=== PATIENT | female | born 1990 | race Caucasian/White ===

== ENCOUNTER 2017-06-06 14:52 | Outpatient (CLI) | payer OTHER ==
[~2017-06-06] VITALS: Ht 160 cm; Wt 89.0 kg
--- NOTE | 2017-06-06 15:04 | RADRPT ---
PROCEDURE: US OB biophysical profile. CLINICAL INDICATION: decreased movements, gestational diabetes TECHNIQUE: Multiple sonographic images of the pelvis were obtained. The images were reviewed on a PACS workstation. COMPARISON: No prior studies are available for comparison. FINDINGS: There is a single viable intrauterine gestation. Cardiac activity is present with 144 beats per min keyanna. There is a vertex presentation. The placenta is anterior. There is no evidence of placental abruption. There is a normal amount of amniotic fluid with an LUCAS = 16.3 cm. Biophysical profile: movement 2/2 tone 2/2. breathing 2/2 LUCAS 2/2 Total 05/22 RPTAT: AA . IMPRESSION: Normal biophysical profile. . .Luis De Leon MD, Date Time Electronically viewed and signed by .Luis De Leon MD, MD on 06/06/2017 15:04 .S/
--- NOTE | 2017-06-06 15:05 | RADRPT ---
PROCEDURE: US OB. CLINICAL INDICATION: Size and dates , GDR TECHNIQUE: Multiple sonographic images of the pelvis and gravid uterus were obtained. The images were reviewed on a PACS workstation. COMPARISON: No prior studies are available for comparison. FINDINGS: There is a single viable intrauterine gestation. Cardiac activity is present with 137 beats per min keyanna. There is a vertex presentation. The placenta is anterior. There is no evidence of placental abruption. There is a normal amount of amniotic fluid with an LUCAS = 16.3 cm. Measurements were made in order to determine age. The results are as follows: BPD =9.1 cm HC =31.4 cm AC =33.9 cm FL =7.7 cm Estimated gestational age of approximately 37 weeks and 2 days based on ultrasound measurements. Clinical age: 40 weeks and 3 days. The estimated date of delivery is 06/25/17, based on ultrasound measurements. The EFW = 3273 g, 18.5%, based on LMP age. RPTAT: AA IMPRESSION: Single viable intrauterine gestation of approximately 37 weeks and 2 days based on ultrasound measu rements. Small than clinical age by 3 weeks. .Luis De Leon MD, Date Time Electronically viewed and signed by .Luis De Leon MD, on 06/06/2017 15:05 .S/
[2017-06-06 16:07] VITALS: Ht 160 cm; Wt 89.0 kg
[2017-06-06 16:09] VITALS: BP 121/77; PULSE 87; RESP 18
[2017-06-06] MEDS ORDERED: LACTATED RINGER'S 1,000 ML IV SCH (16:11)
[2017-06-06] MEDS ORDERED: MISOPROSTOL 200 MCG TAB PR PRN (16:30)
[2017-06-06] MEDS ORDERED: OXYTOCIN 30 UNITS/LR 500 ML IV PRN (16:30)
[2017-06-06] MEDS ORDERED: BUTORPHANOL 2 MG INJ IV PRN (16:30)
[2017-06-06] MEDS ORDERED: METHYLERGONOVINE 0.2 MG INJ IM PRN (16:30)
[2017-06-06] MEDS ORDERED: IBUPROFEN 600 MG TAB PO PRN (16:30)
[2017-06-06] MEDS ORDERED: CARBOPROST 250 MCG INJ IM PRN (16:30)
[2017-06-06] MEDS ORDERED: AMPICILLIN 2 GM/NS (PMX) 100 ML IV ONE (16:30)
[2017-06-06] MEDS ORDERED: LIDOCAINE 1% (MPF) 30 ML INJ INJ PRN (16:30)
[2017-06-06] MEDS ORDERED: OXYTOCIN 30 UNITS/LR 500 ML IV SCH ×2 (16:30)
[2017-06-06] MEDS ORDERED: LACTATED RINGER'S 1,000 ML IV PRN (18:00)
[2017-06-06] MEDS ORDERED: AMPICILLIN 1 GM/NS (PMX) 50 ML IV SCH (20:30)
--- NOTE | 2017-08-29 12:32 | PN ---
Triage Information Date/Time Reason for visit: Uterine contractions Weeks of Gestation 40 weeks and 1 day /Para Diabetes: none Hypertention: none Additional information 27 years old with IUP at 40 weeks and 1 day with no complication in her course presented for r/o labor. Denies any vaginal bleeding. Decreased movement or uterine contractions. Deneis any complications in her course. Objective Heart Rate: 130's Contractions: None Exam GA: A&O, NAD Abdomen: Soft, Gravid, Fundal height consistent with GA NST: CAt 1 SVE: 1 / long and high No cervical change noted in exam and during observation Results/Medications Imaging Results PROCEDURE: US OB. CLINICAL INDICATION: Size and dates , GDR TECHNIQUE: Multiple sonographic images of the pelvis and gravid uterus were obtained. The images were reviewed on a PACS workstation. COMPARISON: No prior studies are available for comparison. FINDINGS: There is a single viable intrauterine gestation. Cardiac activity is present with 137 beats per minute. There is a vertex presentation. The placenta is anterior. There is no evidence of placental abruption. There is a normal amount of amniotic fluid with an LUCAS = 16.3 cm. Measurements were made in order to determine age. The results are as follows: BPD = 9.1 cm HC = 31.4 cm AC = 33.9 cm FL = 7.7 cm Estimated gestational age of approximately 37 weeks and 2 days based on ultrasound measurements. Clinical age: 40 weeks and 3 days. The estimated date of delivery is 06/25/17, based on ultrasound measurements. The EFW = 3273 g, 18.5%, based on LMP age. RPTAT: AA IMPRESSION: Single viable intrauterine gestation of approximately 37 weeks and 2 days based on ultrasound measurements. Small than clinical age by 3 weeks. PROCEDURE: US OB biophysical profile. CLINICAL INDICATION: decreased movements, gestational diabetes TECHNIQUE: Multiple sonographic images of the pelvis were obtained. The images were reviewed on a PACS workstation. COMPARISON: No prior studies are available for comparison. FINDINGS: There is a single viable intrauterine gestation. Cardiac activity is present with 144 beats per minute. There is a vertex presentation. The placenta is anterior. There is no evidence of placental abruption. There is a normal amount of amniotic fluid with an LUCAS = 16.3 cm. Biophysical profile: movement 2/2 tone 2/2. breathing 2/2 LUCAS 11/16 Total 05/22 RPTAT: AA . IMPRESSION: Normal biophysical profile. . Disposition: Discharge Assessment/Plan IUP at 40 weeks and 1 day Post date Not in labor Antepartum testing reassuring DC home Follow up in 3 days for NST Strict labor precaution and kick counts discussed Follow up with OB office in 245- 48 hours discussed Patient verbalized understanding all questions were answered CHARLIE JAMESON MD Aug 29, 2017 12:32
== END 2017-06-06 17:15 | disposition home or self-care (01) ==
LOC: OBT 14:52 → L-D 15:00 → OBT 17:15 → EDSTATUS 17:22
PROVIDERS: ATTEND Obstetrics & Gynecology Obstetrics
DX: O62.9 Abnormality of forces of labor, unspecified (principal); O48.0 Post-term pregnancy; Z3A.40 40 weeks gestation of pregnancy
CPT/HCPCS: 76815; 76818; G0463; J7120

== ENCOUNTER 2017-06-09 10:11 | Inpatient (IN) | payer OTHER ==
--- NOTE | 2017-06-06 23:49 | PN ---
Triage Information Date/Time 06/06/2017 Reason for visit: Patient was sent from [facility] for evaluation for presenation . Per patient was told that has face presentation with mentum anterior and Nuchal cord x 1. Weeks of Gestation 40 weeks and 3 days /Para Diabetes: none Hypertention: none Additional information 27 years old with IUP at 39 weeks and 3 days and care at [place] was sent for evaluation due to Face? presenation. mentum anterior and nuchal cord x 1 in ultrasound and concern for possible macrosomia She denied any vaginal bleeding. Leaking of fluid or uterine contractions or decreased movement. Had an ultrasound here at the facility that was noted to have vertex presentation. NST: Category 1. Exam showed 1 fingertip /long and high. Occasional rare contraction noted on the monitor. Estimated weight 3858 g Patient denies feeling any contractions. Objective Heart Rate: 130's Contractions: >10 Minutes Apart Results/Medications Imaging Results PROCEDURE: US OB. CLINICAL INDICATION: Size and dates , GDR TECHNIQUE: Multiple sonographic images of the pelvis and gravid uterus were obtained. The images were reviewed on a PACS workstation. COMPARISON: No prior studies are available for comparison. FINDINGS: There is a single viable intrauterine gestation. Cardiac activity is present with 137 beats per minute. There is a vertex presentation. The placenta is anterior. There is no evidence of placental abruption. There is a normal amount of amniotic fluid with an LUCAS = 16.3 cm. Measurements were made in order to determine age. The results are as follows: BPD = 9.1 cm HC = 31.4 cm AC = 33.9 cm FL = 7.7 cm Estimated gestational age of approximately 37 weeks and 2 days based on ultrasound measurements. Clinical age: 40 weeks and 3 days. The estimated date of delivery is 06/25/17, based on ultrasound measurements. The EFW = 3273 g, 18.5%, based on LMP age. RPTAT: AA IMPRESSION: Single viable intrauterine gestation of approximately 37 weeks and 2 days based on ultrasound measurements. Small than clinical age by 3 weeks. Disposition: Discharge Assessment/Plan IUP at 40 weeks and 2days Not in labor heart rate category 1 Presentation vertex No evidence of macrosomia options of Induction versus expectant management and induction at 40 weeks and 6 days, discussed with the patient with pros and cons and risks and benefit. Increased risk of section with induction discussed. Patient desires to proceed with expectant management. Strict labor precaution and kick count discussed. Follow-up with triage in 3 days for NST with a plan to book for induction at 40 weeks and 6 days discussed with the patient Patient verbalized understanding and agreed to comply with instructions Strict kick count discussed with the patient CHARLIE JAMESON MD Jun 06, 2017 23:49
--- NOTE | 2017-06-09 12:12 | RADRPT ---
PROCEDURE: US OB. CLINICAL INDICATION: Post dates at 40 weeks 4 days. TECHNIQUE: Multiple sonographic images of the uterus were obtained. The images were revi ewed on a PACS workstation. COMPARISON: No prior studies are available for comparison. FINDINGS: There is a single live intrauterine gestation. heart rate is 144 beats per minute. Measurements were made in order to determine age. The results are as follows: BPD = 9.42 cm. HC = 34.31 cm. AC = 36.69 cm. FL = 7.51 cm. Estimated weight is 3881 +/- 582 grams. LMP growth percentile is 64 %. Menstrual age by ultrasound dates is 39 weeks 2 days. The estimated date of delivery is 06/14/2017. Position is cephalic and placenta is anterior grade III. There is no evidence for an abruption or pl acenta previa. IMPRESSION: 1. Single live intrauterine gestation of 39 weeks 0 days menstrual age by ultrasound dates. 2. The estimated date of delivery is 06/16/2017. RPTAT: QQ .Andreas Roland MD, Date Time Electronically viewed and signed by .Andreas Roland MD, on 06/09/2017 12:11 .R/
--- NOTE | 2017-06-09 13:40 | HP ---
Date/Time of Note Date/Time of Note DATE: 06/09/17 TIME: 13:36 OB - History Hx of Present Chief Complaint: NST and biophysical profile for postdates at 40 weeks 4 days of gestation Estimated Due Date: Jun 05, 2017 : 1 Para: 0 Care: Good Care Abnormal Ultrasound Findings: PROCEDURE: US OB. CLINICAL INDICATION: Post dates at 40 weeks 4 days. TECHNIQUE: Multiple sonographic images of the uterus were obtained. The images were reviewed on a PACS workstation. COMPARISON: No prior studies are available for comparison. FINDINGS: There is a single live intrauterine gestation. heart rate is 144 beats per minute. Measurements were made in order to determine age. The results are as follows: BPD = 9.42 cm. HC = 34.31 cm. AC = 36.69 cm. FL = 7.51 cm. Estimated weight is 3881 +/- 582 grams. LMP growth percentile is 64 %. Menstrual age by ultrasound dates is 39 weeks 2 days. The estimated date of delivery is 06/14/2017. Position is cephalic and placenta is anterior grade III. There is no evidence for an abruption or placenta previa. IMPRESSION: 1. Single live intrauterine gestation of 39 weeks 0 days menstrual age by ultrasound dates. 2. The estimated date of delivery is 06/16/2017. RPTAT: QQ .Andreas Roland MD, Date Time Electronically viewed and signed by .Andreas Roland MD, MD on 06/09/2017 12:11 .R/ CC: HELGA MARTINEZ MD Obstetrical Complications: None Medical Complications: None Other Concerns: + GBS Past Family/Social History * Past Medical, Surgical, Family and Obstetric Histories reviewed from chart. OB Admission Exam Physical Exam HEENT: WNL Cervical Dilatation: 1cm Effacement: 50% Station: -2 Membranes: Intact Heart Rate: 140's Accelerations: Accelerations Present Decelerations: No Decelerations Varibility: Marked Contractions on Admission: 6-10 Minutes Apart OB Assessment/Plan Other Assessment: Primigravida postdates at 40 weeks and 4 days of gestation Admit for augmentation of labor Labs ABX for GBS prophylaxis Epidural anesthesia as needed Induction Method: per Pitocin Protocol HELGA MARTINEZ MD Jun 09, 2017 13:40
[2017-06-09] MEDS: LACTATED RINGER'S 1,000 ML IV SCH ×2 (13:56→17:23)
[2017-06-09] MEDS ORDERED: OXYCODONE/ASPIRIN (4.88/325) TAB PO PRN (14:00)
[2017-06-09] MEDS ORDERED: BUTORPHANOL 2 MG INJ IV PRN ×2 (14:00)
[2017-06-09] MEDS ORDERED: METHYLERGONOVINE 0.2 MG INJ IM PRN ×2 (14:00→18:30)
[2017-06-09] MEDS ORDERED: LIDOCAINE 1% (MPF) 30 ML INJ INJ PRN (14:00)
[2017-06-09] MEDS ORDERED: OXYTOCIN 30 UNITS/LR 500 ML IV PRN ×2 (14:00→18:30)
[2017-06-09] MEDS ORDERED: AMPICILLIN 2 GM/NS (PMX) 100 ML IV ONE (14:00)
[2017-06-09] MEDS ORDERED: IBUPROFEN 600 MG TAB PO PRN (14:00)
[2017-06-09] MEDS ORDERED: HYDROCODONE/APAP (5/325) TAB PO PRN (14:00)
[2017-06-09] MEDS ORDERED: OXYTOCIN 30 UNITS/LR 500 ML IV SCH ×3 (14:00)
[2017-06-09] MEDS ORDERED: CARBOPROST 250 MCG INJ IM PRN ×2 (14:00→18:30)
[2017-06-09] MEDS ORDERED: MISOPROSTOL 200 MCG TAB PR PRN ×2 (14:00→18:30)
[2017-06-09 15:24] LABS: BASOPHILS % 0.2 % (0.0-2.0); EOSINOPHILS % 0.2 % (0.0-7.0); HEMATOCRIT 41.2 % (37.0-47.0); HEMOGLOBIN 13.3 g/dl (12.0-16.0); LYMPHOCYTES # 1.7 10^3/ul (0.8-2.9); LYMPHOCYTES % 13.1 % (15.0-51.0); MEAN CORPUSCULAR HEMOGLOBIN 26.4 pg (29.0-33.0); MEAN CORPUSCULAR HGB CONC 32.3 g/dl (32.0-37.0); MEAN CORPUSCULAR VOLUME 81.7 fl (82.0-101.0); MEAN PLATELET VOLUME 9.9 fl (7.4-10.4); MONOCYTE # 0.7 10^3/ul (0.3-0.9); MONOCYTES % 5.4 % (0.0-11.0); NEUTROPHILS % 80.1 % (39.0-77.0); PLATELET COUNT 263 10^3/UL (140-415); RED BLOOD COUNT 5.04 10^6/ul (4.20-5.40); RED CELL DISTRIBUTION WIDTH 18.6 % (11.5-14.5); WHITE BLOOD COUNT 12.6 10^3/ul (4.8-10.8)
[2017-06-09 15:40] LABS: INR 1.02; PROTIME 13.4 Sec (12.2-14.2)
[2017-06-09 15:41] LABS: PARTIAL THROMBOPLASTIN TIME 28.5 Sec (25.0-35.0)
[2017-06-09 15:42] LABS: ALBUMIN 3.2 g/dl (3.3-4.9); ALBUMIN/GLOBULIN RATIO 0.88; BILIRUBIN,INDIRECT 0.1 mg/dl (0-1.1); BILIRUBIN,TOTAL 0.1 mg/dl (0.2-1.3); CALCIUM 8.8 mg/dl (8.4-10.2); CREATININE 0.65 mg/dl (0.44-1.00); POTASSIUM 4.2 mmol/L (3.5-5.1); TOTAL PROTEIN 6.8 g/dl (6.1-8.1)
[2017-06-09] MEDS ORDERED: CEFAZOLIN 2 GM/50 ML (PMX) 50 ML IV SCH (18:30)
--- NOTE | 2017-06-09 18:39 | PN ---
Date/Time of Note Date/Time of Note DATE: 06/09/17 TIME: 18:33 OB Subjective Subjective Subjective Patient at 40 weeks and 4 days of gestation admitted for augmentation of labor with oxytocin OB Objective Objective Objective heart rate tracing category 2 with evidence of late deceleration Fetus intolerance to labor PROCEDURE: US OB. CLINICAL INDICATION: Post dates at 40 weeks 4 days. TECHNIQUE: Multiple sonographic images of the uterus were obtained. The images were reviewed on a PACS workstation. COMPARISON: No prior studies are available for comparison. FINDINGS: There is a single live intrauterine gestation. heart rate is 144 beats per minute. Measurements were made in order to determine age. The results are as follows: BPD = 9.42 cm. HC = 34.31 cm. AC = 36.69 cm. FL = 7.51 cm. Estimated weight is 3881 +/- 582 grams. LMP growth percentile is 64 %. Menstrual age by ultrasound dates is 39 weeks 2 days. The estimated date of delivery is 06/14/2017. Position is cephalic and placenta is anterior grade III. There is no evidence for an abruption or placenta previa. IMPRESSION: 1. Single live intrauterine gestation of 39 weeks 0 days menstrual age by ultrasound dates. 2. The estimated date of delivery is 06/16/2017. RPTAT: QQ .Andreas Roland MD, Date Time Electronically viewed and signed by .Andreas Roland MD, MD on 06/09/2017 12:11 .R/ CC: HELGA MARTINEZ MD PROCEDURE: Obstetrical ultrasound for biophysical profile CLINICAL INDICATION: Biophysical profile. . TECHNIQUE: Obstetrical ultrasound of the uterus for biophysical profile. Transabdominal views are obtained. COMPARISON: 06/09/2017 FINDINGS: Single intrauterine gestation. Presentation: Cephalic. Placenta: Anterior. No evidence of placental abruption. No evidence of placenta previa. breathing movement = 2/2 tone = 2/2 motion = 2/2 LUCAS = 2/2 RNST 2/2 LUCAS = 14.1 cm heart rate: 135 beats per minute IMPRESSION: Single intrauterine gestation. Biophysical profile 07/24 RPTAT: AADD .Tayo Houston MD, MD Date Time Electronically viewed and signed by .Tayo Houston MD, MD on 06/09/2017 21:16 .B/ CC: HELGA MARTINEZ MD OB Assessment/Plan Other Assessment: Category 2 heart rate tracing Fetus intolerance to labor Other plan: Patient was extensively counseled that a primary section would be recommended in the setting of category 2 heart rate tracing/fetus intolerance to labor All risks and benefits of the procedure were explained to the patient Risks including but not limited to infection, bleeding which may require blood transfusion, trauma to other organs including bowel and bladder Patient's questions were answered She completely understands her plan of care and agrees to proceed HELGA MARTINEZ MD Jun 09, 2017 18:38
[2017-06-09] MEDS: AMPICILLIN 1 GM/NS (PMX) 50 ML IV SCH ×2 (19:06→22:00)
[2017-06-09] MEDS ORDERED: HYDROmorphONE (0.2 MG/ML) 10ML SYG IV PRN ×2 (21:00)
[2017-06-09] MEDS ORDERED: KETOROLAC 30 MG INJ IV PRN (21:00)
[2017-06-09] MEDS ORDERED: NALOXONE (0.4 MG/ML) INJ IV PRN (21:00)
[2017-06-09] MEDS ORDERED: METOCLOPRAMIDE 10 MG INJ IV PRN (21:00)
[2017-06-09] MEDS ORDERED: MEPERIDINE 25 MG INJ IV PRN (21:00)
[2017-06-09] MEDS ORDERED: HYDROmorphONE 1 MG/ML SYG IV PRN ×2 (21:00)
[2017-06-09] MEDS ORDERED: DIPHENHYDRAMINE 50 MG INJ IV PRN ×2 (21:00)
[2017-06-09] MEDS ORDERED: ONDANSETRON 4 MG INJ IV PRN ×2 (21:00)
[2017-06-09] MEDS ORDERED: FENTAnyl 50 MCG/ML VIAL IV PRN ×2 (21:00)
[2017-06-09] MEDS ORDERED: ALBUTEROL 0.083% (NEB) 2.5 MG/3 ML AMP HHN PRN (21:00)
--- NOTE | 2017-06-09 21:16 | RADRPT ---
PROCEDURE: Obstetrical ultrasound for biophysical profile CLINICAL INDICATION: Biophysical profile. . TECHNIQUE: Obstetrical ultrasound of the uterus for biophysical profile. Transabdominal views are obtained. COMPARISON: 06/09/2017 FINDINGS: Single intrauterine gestation. Presentation: Cephalic. Placenta: Anterior. No evidence of placental abruption. No evidence of placenta previa. breathing movement = 2/2 tone = 2/2 motion = 2/2 LUCAS = 2/2 RNST 2/2 LUCAS = 14.1 cm heart rate: 135 beats per minute IMPRESSION: Single intrauterine gestation. Biophysical profile 07/24 RPTAT: AADD .Tayo Houston MD, MD Date Time Electronically viewed and signed by .Tayo Houston MD, on 06/09/2017 21:16 .B/
[2017-06-09] MEDS ORDERED: LACTATED RINGER'S 1,000 ML IV PRN (22:00)
[2017-06-10] MEDS ORDERED: morphine SULFATE/PF (10 MG/10 ML) INJ ONE (00:40)
[2017-06-10] MEDS ORDERED: PHENYLephrine (100 MCG/ML) 5ML SYG ONE (00:40)
[2017-06-10] MEDS ORDERED: ONDANSETRON 4 MG INJ ONE (00:57)
--- NOTE | 2017-06-10 02:08 | OPR ---
Date/Time of Note Date/Time of Note DATE: 06/10/17 TIME: 02:05 Operative Report Free Text/Dictation IVF 1500 cc U/O 200 cc Baby boy cord around the neck x one 8,9 Wt 8 lbs. 7 oz. / 3815 g Procedure Date: Jun 10, 2017 Preoperative Diagnosis intolerance to labor Postoperative Diagnosis intolerance to labor Operation Performed Primary low transverse Surgeon: HELGA MARTINEZ MD Observer Electrical Prospecting: ORLANDO ALVAREZ Anesthesia Type: spinal Estimated Blood Loss: other (500) Transfusion Required: no Specimens placenta Grafts/Implants: none Complications: no Pt Condition Post Procedure: stable Indications intolerance to labor Operative\Procedure Findings Cord around the neck 1 reduced manually Procedure Description Under satisfactory [spinal] anesthesia, the patient was prepped and draped and placed in a supine position, tilted to the left. Pfannenstiel incision was made , carried through the subcutaneous tissue. Bleeders brought under control with electrocautery. Fascia incised to the length of the incision. Rectus muscles from the fascia, divided midline. Peritoneum exposed, entered through a transverse incision. Exploration of abdomen revealed gravid uterus. Transverse incision was made in the lower segment of the uterus. Amniotic sac ruptured. [clear] amniotic fluid noted. Cord around the neck reduced manually. Nasal oropharyngeal suction was performed. The baby was handed to the team for immediate attention. The placenta was delivered manually intact. Uterine cavity was cleaned with wet sponge and drainage established. Uterus closed in 2 layers using [0 Vicryl] in running locked fashion. Peritoneal cavity irrigated with warm saline. Sponge, needle and instrument count reported to be correct. Abdominal peritoneum closed with [2-0 Vicryl] continuously. Rectus muscle approximated with [2-0 Vicryl]. Fascia closed with [0 Vicryl], and skin closed with end-sorb kirsty. Estimated blood loss [500]mL. Urine bag contained [200]mL of urine, IV fluid 1500 cc HELGA MARTINEZ MD Jun 10, 2017 02:07
[2017-06-10] MEDS ORDERED: LACTATED RINGER'S 1,000 ML IV SCH (02:11)
[2017-06-10] MEDS ORDERED: OXYTOCIN 30 UNITS/LR 500 ML IV SCH (02:11)
[2017-06-10] MEDS ORDERED: METHYLERGONOVINE 0.2 MG INJ IM PRN ×2 (02:30→05:00)
[2017-06-10] MEDS ORDERED: CARBOPROST 250 MCG INJ IM PRN ×2 (02:30→05:00)
[2017-06-10] MEDS ORDERED: OXYTOCIN 30 UNITS/LR 500 ML IV PRN ×2 (02:30→05:00)
[2017-06-10] MEDS ORDERED: SENNA/DOCUSATE NA (8.6MG/50MG) TAB PO PRN (02:30)
[2017-06-10] MEDS ORDERED: OXYCODONE/ACETAMINOPHEN (5/325) TAB PO PRN (02:30)
[2017-06-10] MEDS ORDERED: MAGNESIUM HYDROXIDE 30ML CUP PO PRN (02:30)
[2017-06-10] MEDS ORDERED: ACETAMINOPHEN 325 MG TAB PO PRN (02:30)
[2017-06-10] MEDS ORDERED: MISOPROSTOL 200 MCG TAB PR PRN ×2 (02:30→05:00)
[2017-06-10] MEDS ORDERED: CEFAZOLIN 1 GM/50 ML (PMX) 50 ML IV SCH (02:30)
[2017-06-10] MEDS ORDERED: ONDANSETRON 4 MG INJ IV PRN (02:30)
[2017-06-10] MEDS ORDERED: LANOLIN 7 GM TUBE TOP PRN ×2 (02:30→05:00)
[2017-06-10] MEDS ORDERED: BISACODYL 10 MG SUPP PR PRN (02:30)
[2017-06-10] MEDS: KETOROLAC 30 MG INJ IV PRN ×4 (03:09→15:43)
[2017-06-10 04:35] VITALS: BP 124/73; PULSE 63; RESP 19
[2017-06-10 05:00] VITALS: BP 131/69; PULSE 67; RESP 19
[2017-06-10] MEDS ORDERED: METHYLERGONOVINE 0.2 MG TAB PO PRN (05:00)
[2017-06-10] MEDS ORDERED: OXYTOCIN 30 UNITS/LR 500 ML BAG IV ONE (07:00)
[2017-06-10] MEDS ORDERED: EPHEDrine SULFATE 50 MG/5 ML SYG ONE (07:00)
[2017-06-10] MEDS: OXYTOCIN 30 UNITS/LR 500 ML IV SCH ×2 (07:22→12:39)
[2017-06-10 08:00] VITALS: BP 111/61; PULSE 76; RESP 14
[2017-06-10] MEDS: SENNA/DOCUSATE NA (8.6MG/50MG) TAB PO SCH ×2 (09:33→21:35)
[2017-06-10 10:48] LABS: BASOPHILS % 0.3 % (0.0-2.0); EOSINOPHILS % 0.1 % (0.0-7.0); HEMATOCRIT 34.1 % (37.0-47.0); HEMOGLOBIN 10.8 g/dl (12.0-16.0); LYMPHOCYTES # 1.6 10^3/ul (0.8-2.9); LYMPHOCYTES % 13.6 % (15.0-51.0); MEAN CORPUSCULAR HEMOGLOBIN 26.1 pg (29.0-33.0); MEAN CORPUSCULAR HGB CONC 31.7 g/dl (32.0-37.0); MEAN CORPUSCULAR VOLUME 82.4 fl (82.0-101.0); MEAN PLATELET VOLUME 10.1 fl (7.4-10.4); MONOCYTE # 0.8 10^3/ul (0.3-0.9); MONOCYTES % 6.3 % (0.0-11.0); NEUTROPHILS % 79.1 % (39.0-77.0); PLATELET COUNT 225 10^3/UL (140-415); RED BLOOD COUNT 4.14 10^6/ul (4.20-5.40); RED CELL DISTRIBUTION WIDTH 18.4 % (11.5-14.5); WHITE BLOOD COUNT 11.9 10^3/ul (4.8-10.8)
--- NOTE | 2017-06-10 11:40 | CONS ---
Date/Time of Note Date/Time of Note DATE: 06/10/17 TIME: 11:40 Consultation Date/Type/Reason Admit Date/Time Jun 09, 2017 at 12:15 Initial Consult Date 06/10/17 Type of Consultation: Anesthesiology Reason for Consultation follow up 24 HR Interval Summary Free Text/Dictation Pt seen and examined is POD#1 s/p primary c/s. Pt received spinal duramorph for post-op pain control. She states she is doing well and her pain is adequately controlled at this time. No N/V/D/C/MONTOYA. No numbness in her extremities. Will continue to follow. Constitutional: improved, no complaints Exam/Review of Systems Vital Signs Vitals Vital Signs Date Time Temp Pulse Resp B/P Pulse Ox O2 Delivery O2 Flow Rate FiO2 06/10/17 09:10 97 21 06/10/17 05:00 67 19 131/69 Room Air 06/10/17 04:35 97.5 Intake and Output 06/09/17 06/09/17 06/10/17 15:00 23:00 07:00 Intake Total 125 ml Output Total 500 ml 2300 ml Balance -375 ml -2300 ml Results Result Diagram: 06/10/17 1011 06/09/17 1520 Results 24 hrs Laboratory Tests Test 06/09/17 15:20 06/10/17 10:11 White Blood Count 12.6 H 11.9 H Red Blood Count 5.04 4.14 L Hemoglobin 13.3 10.8 L Hematocrit 41.2 34.1 L Mean Corpuscular Volume 81.7 L 82.4 Mean Corpuscular Hemoglobin 26.4 L 26.1 L Mean Corpuscular Hemoglobin Concent 32.3 31.7 L Red Cell Distribution Width 18.6 H 18.4 H Platelet Count 263 225 Mean Platelet Volume 9.9 10.1 Neutrophils % 80.1 H 79.1 H Lymphocytes % 13.1 L 13.6 L Monocytes % 5.4 6.3 Eosinophils % 0.2 0.1 Basophils % 0.2 0.3 Nucleated Red Blood Cells % 0.0 0.0 Neutrophils # (Manual) 10.1 H 9.5 H Lymphocytes # 1.7 1.6 Monocytes # 0.7 0.8 Eosinophils # 0.0 0.0 Basophils # 0.0 0.0 Nucleated Red Blood Cells # 0.0 0.0 Prothrombin Time 13.4 Prothrombin Time Ratio 1.0 INR International Normalized Ratio 1.02 Activated Partial Thromboplast Time 28.5 Fibrinogen 527.0 H Sodium Level 140 Potassium Level 4.2 Chloride Level 106 Carbon Dioxide Level 19 L Anion Gap 19 H Blood Urea Nitrogen 8 Creatinine 0.65 Glucose Level 64 L Calcium Level 8.8 Total Bilirubin 0.1 L Direct Bilirubin 0.00 Indirect Bilirubin 0.1 Aspartate Amino Transf (AST/SGOT) 27 Alanine Aminotransferase (ALT/SGPT) 41 Alkaline Phosphatase 246 H Total Protein 6.8 Albumin 3.2 L Globulin 3.60 H Albumin/Globulin Ratio 0.88 Rapid Plasma Reagin NONREACTIVE Medications Medications Current Medications Acetaminophen/ Hydrocodone Bitart ([place] (5/325)) 2 tab ONCE PRN PO Moderate to Severe Pain (4-10); Start 06/09/17 at 14:00 Oxycodone/Aspirin (Percodan) 2 tab ONCE PRN PO Moderate to Severe Pain (4-10); Start 06/09/17 at 14:00 Oxycodone/ Acetaminophen (Percocet (5/ 325)) 2 tab ONCE PRN PO Moderate to Severe Pain (4-10); Start 06/09/17 at 14:00 Naloxone HCl (Narcan) 0.1 mg Q2M PRN IV FOR RESP RATE 8 OR LESS; Start at 21:00; Stop 06/10/17 at 20:59 Ketorolac Tromethamine (Toradol) 30 mg Q6H PRN IV PAIN Last administered on t 09:34; Admin Dose 30 MG; Start 06/09/17 at 21:00; Stop 06/10/17 at 20:59 Hydromorphone HCl (Dilaudid) 0.2 mg Q3H PRN IV PAIN LEVEL 1-5; Start 06/09/17 at 21:00; Stop 06/10/17 at 20:59 Hydromorphone HCl (Dilaudid) 0.4 mg Q3H PRN IV PAIN LEVEL 6-10; Start 06/09/17 at 21:00; Stop 06/10/17 at 20:59 Diphenhydramine HCl (Benadryl) 25 mg Q6H PRN IV ITCHING; Start 06/09/17 at 21: 00; Stop 06/10/17 at 20:59 Ondansetron HCl (Zofran Inj) 4 mg Q6H PRN IV NAUSEA AND/OR VOMITING; Start at 21:00; Stop 06/10/17 at 20:59 Oxycodone/ Acetaminophen (Percocet (5/ 325)) 1 tab Q4H PRN PO PAIN LEVEL 4-6; Start 06/10/17 at 02:30 Oxycodone/ Acetaminophen (Percocet (5/ 325)) 2 tab Q4H PRN PO PAIN LEVEL 7-10; Start 06/10/17 at 02:30 Simethicone (Mylicon) 160 mg Q8H PRN PO DISTENSION/GAS/BLOATING; Start at 02:30 Acetaminophen (Tylenol Tab) 650 mg Q6H PRN PO PAIN AND OR ELEVATED TEMP; Start 06/10/17 at 02:30 Senna/Docusate Sodium (Senokot-S) 1 tab BID PRN PO CONSTIPATION; Start at 02:30 Magnesium Hydroxide 30 ml 30 ml BID PRN PO CONSTIPATION; Start 06/10/17 at 02: 30 Lactated Ringer's 1,000 ml @ 125 mls/hr Q8H IV ; Start 06/10/17 at 04:39 Oxytocin/Lactated Ringer's 500 ml @ 125 mls/hr Q4H IV Last administered on 07:22; Admin Dose 125 MLS/HR; Start 06/10/17 at 04:39; Stop 06/10/17 at 12:38 Simethicone (Mylicon) 160 mg Q8H PRN PO DISTENSION/GAS/BLOATING; Start at 05:00 Senna/Docusate Sodium 1 tab 1 tab BID PO Last administered on 06/10/17 09:33; Admin Dose 1 TAB; Start 06/10/17 at 09:00 Oxytocin/Lactated Ringer's 500 ml @ 0 mls/hr ONCE PRN IV For Hemorrhage Management; Start 06/10/17 at 05:00 Methylergonovine Maleate (Methergine) 0.2 mg ONCE PRN IM VAGINAL BLEEDING; Start 06/10/17 at 05:00 Carboprost Tromethamine (Hemabate) 250 mcg ONCE PRN IM VAGINAL BLEEDING; Start 06/10/17 at 05:00 Misoprostol (Cytotec) 1,000 mcg ONCE PRN [place] VAGINAL BLEEDING; Start 06/10/17 at 05:00 MARY MURILLO Jun 10, 2017 11:40
[2017-06-10 12:24] VITALS: BP 109/58; PULSE 66; RESP 14
[2017-06-10] MEDS: LACTATED RINGER'S 1,000 ML IV SCH ×3 (12:39→20:39)
[2017-06-10 15:46] VITALS: BP 110/70; PULSE 74; RESP 16
--- NOTE | 2017-06-10 17:13 | QN ---
Documentation Comment pod0-1 pt doing well vss exam wnl a/p pod1 continue care MAICO BENSON MD Jun 10, 2017 17:13
[2017-06-10 19:50] VITALS: BP 100/70; PULSE 70; RESP 18
[2017-06-10] MEDS ORDERED: IBUPROFEN 600 MG TAB PO PRN (22:00)
[2017-06-10] MEDS: OXYCODONE/ACETAMINOPHEN (5/325) TAB PO PRN (22:27)
[2017-06-11] MEDS: OXYCODONE/ACETAMINOPHEN (5/325) TAB PO PRN ×5 (04:04→20:15)
[2017-06-11 04:20] VITALS: BP 110/55; PULSE 62; RESP 18
[2017-06-11] MEDS: LACTATED RINGER'S 1,000 ML IV SCH ×2 (04:39→12:39)
[2017-06-11 07:56] LABS: BASOPHILS % 0.2 % (0.0-2.0); EOSINOPHILS % 0.3 % (0.0-7.0); HEMATOCRIT 32.6 % (37.0-47.0); HEMOGLOBIN 10.6 g/dl (12.0-16.0); LYMPHOCYTES # 1.6 10^3/ul (0.8-2.9); LYMPHOCYTES % 14.2 % (15.0-51.0); MEAN CORPUSCULAR HEMOGLOBIN 26.5 pg (29.0-33.0); MEAN CORPUSCULAR HGB CONC 32.5 g/dl (32.0-37.0); MEAN CORPUSCULAR VOLUME 81.5 fl (82.0-101.0); MEAN PLATELET VOLUME 9.7 fl (7.4-10.4); MONOCYTE # 0.7 10^3/ul (0.3-0.9); MONOCYTES % 6.1 % (0.0-11.0); NEUTROPHILS % 78.5 % (39.0-77.0); PLATELET COUNT 253 10^3/UL (140-415); RED CELL DISTRIBUTION WIDTH 18.2 % (11.5-14.5); WHITE BLOOD COUNT 10.9 10^3/ul (4.8-10.8)
[2017-06-11 08:20] VITALS: BP 113/70; PULSE 73; RESP 17
[2017-06-11] MEDS: SENNA/DOCUSATE NA (8.6MG/50MG) TAB PO SCH ×2 (09:06→20:15)
[2017-06-11 09:31] LABS: ALBUMIN 2.5 g/dl (3.3-4.9); ALBUMIN/GLOBULIN RATIO 0.83; BILIRUBIN,INDIRECT 0.2 mg/dl (0-1.1); BILIRUBIN,TOTAL 0.2 mg/dl (0.2-1.3); CALCIUM 8.2 mg/dl (8.4-10.2); CREATININE 0.72 mg/dl (0.44-1.00); POTASSIUM 4.4 mmol/L (3.5-5.1); TOTAL PROTEIN 5.5 g/dl (6.1-8.1)
[2017-06-11 16:10] VITALS: BP 114/72; PULSE 83; RESP 16
[2017-06-11] MEDS: IBUPROFEN 600 MG TAB PO SCH (17:50)
[2017-06-11] MEDS ORDERED: IBUPROFEN 600 MG TAB GTB SCH (18:00)
[2017-06-11 20:15] VITALS: BP 112/76; PULSE 76; RESP 18
[2017-06-12] MEDS: IBUPROFEN 600 MG TAB PO SCH ×5 (00:27→23:54)
[2017-06-12] MEDS: OXYCODONE/ACETAMINOPHEN (5/325) TAB PO PRN ×4 (02:14→20:37)
[2017-06-12 04:20] VITALS: BP 118/70; PULSE 72; RESP 18
[2017-06-12 07:50] VITALS: BP 133/78; PULSE 87; RESP 18
[2017-06-12] MEDS: SENNA/DOCUSATE NA (8.6MG/50MG) TAB PO SCH ×2 (08:05→20:38)
[2017-06-12 16:00] VITALS: BP 111/77; PULSE 64; RESP 16
--- NOTE | 2017-06-12 16:14 | QN ---
Documentation Comment POD#2 is stable afebrile tolerates diet No VB +Voids +flatus VS stable Gen NAD Abd soft NT ND Incision intact Genitalia No blood at perinum --->Discharge plan tomorrow --->ambulation HELENA PRESCOTT M.D. Jun 12, 2017 16:14
[2017-06-12 19:45] VITALS: BP 135/98; PULSE 91; RESP 18
[2017-06-13] MEDS: OXYCODONE/ACETAMINOPHEN (5/325) TAB PO PRN ×2 (02:52→10:42)
[2017-06-13 03:30] VITALS: BP 114/63; PULSE 85; RESP 18
[2017-06-13] MEDS: IBUPROFEN 600 MG TAB PO SCH ×2 (06:20→12:35)
[2017-06-13 08:00] VITALS: BP 116/71; PULSE 77; RESP 19
[2017-06-13 08:30] VITALS: BP 116/71; PULSE 77; RESP 18
[2017-06-13] MEDS: SENNA/DOCUSATE NA (8.6MG/50MG) TAB PO SCH (09:00)
--- NOTE | 2017-06-13 16:54 | PN ---
Date/Time of Note Date/Time of Note DATE: 06/13/17 TIME: 16:51 OB Subjective Subjective Subjective Postoperative day #3 Status post section due to failure to descend and nonreassuring heart tracing. Denies any nausea vomiting. Breast-feeding. Passed flatus. Had bowel movement. Pain well controlled with p.o. pain medication. Urinated. Ambulating without any symptom. OB Objective Objective Objective Const: [XOXOXO] Head: [Atraumatic] Eyes: [Normal Conjunctiva] ENT: [Normal External Ears, Nose and Mouth.] Neck: [Full range of motion. No meningismus.] Resp: [Clear to auscultation bilaterally] Cardio: [Regular rate and rhythm, no murmurs] Abd: [Soft, non tender, non distended. Normal bowel sounds].. Appropriate tenderness in the section incision. Wound clean dry and intact. Extremities: No calf tenderness, no click, 1+ bilateral symmetric edema. Hematology - 72 Hrs Test 06/11/17 07:32 White Blood Count 10.910^3/ul (4.8-10.8) H Red Blood Count 4.0010^6/ul (4.20-5.40) L Hemoglobin 10.6g/dl (12.0-16.0) L Hematocrit 32.6% (37.0-47.0) L Mean Corpuscular Volume 81.5fl (82.0-101.0) L Mean Corpuscular Hemoglobin 26.5pg (29.0-33.0) L Mean Corpuscular Hemoglobin Concent 32.5g/dl (32.0-37.0) Red Cell Distribution Width 18.2% (11.5-14.5) H Platelet Count 31245^3/UL (140-415) Mean Platelet Volume 9.7fl (7.4-10.4) Neutrophils % 78.5% (39.0-77.0) H Lymphocytes % 14.2% (15.0-51.0) L Monocytes % 6.1% (0.0-11.0) Eosinophils % 0.3% (0.0-7.0) Basophils % 0.2% (0.0-2.0) Nucleated Red Blood Cells % 0.0/100WBC (0.0-0.0) Neutrophils # (Manual) 8.510^3/ul (1.7-7.5) H Lymphocytes # 1.610^3/ul (0.8-2.9) Monocytes # 0.710^3/ul (0.3-0.9) Eosinophils # 0.010^3/ul (0.0-0.5) Basophils # 0.010^3/ul (0.0-0.1) Nucleated Red Blood Cells # 0.010^3/ul (0.0-0.0) Chemistry Test 06/11/17 07:32 Sodium Level 137mmol/L (135-144) Potassium Level 4.4mmol/L (3.5-5.1) Chloride Level 104mmol/L (97-110) Carbon Dioxide Level 23mmol/L (21-31) Anion Gap 14 (8-16) Blood Urea Nitrogen 7mg/dl (7-20) Creatinine 0.72mg/dl (0.44-1.00) Glucose Level 81mg/dl (70-220) Calcium Level 8.2mg/dl (8.4-10.2) L Total Bilirubin 0.2mg/dl (0.2-1.3) Direct Bilirubin 0.00mg/dl (0.00-0.20) Indirect Bilirubin 0.2mg/dl (0-1.1) Aspartate Amino Transf (AST/SGOT) 41IU/L (15-46) Alanine Aminotransferase (ALT/SGPT) 41IU/L (13-69) Alkaline Phosphatase 168IU/L (42-121) H Total Protein 5.5g/dl (6.1-8.1) #L Albumin 2.5g/dl (3.3-4.9) L Globulin 3.00g/dl (1.3-3.2) Albumin/Globulin Ratio 0.83 OB Assessment/Plan Other Assessment: Postoperative day #3, status post for failure to descent and nonreassuring heart tracing, doing well Stable to discharge home today. Discussed follow-up in 2 weeks and 6 weeks with OB clinic for possible care. Verbalized understanding. Continue vitamin CHARLIE JAMESON MD Jun 13, 2017 16:54
--- NOTE | 2017-06-13 16:56 | DS ---
Date/Time of Note Date/Time of Note DATE: 06/13/17 TIME: 16:54 Obstetrical Discharge Record Final Diagnosis Final Diagnosis: Term delivered Other Final Diagnosis Status post section for failure to progress and nonreassuring heart tracing Vaginal Delivery Other Delivery information Post primary low transverse section Via Pfannenstiel skin incision Section Section: Primary Primary Indication Failure to progress Nonreassuring heart tracing Complications Other (Postdates) Augmentation: No Induction: Yes Rupture of Membranes: No Condition on Discharge Physical Assessment Patient Condition: Good CHARLIE JAMESON MD Jun 13, 2017 16:56
== END 2017-06-13 15:15 | disposition home or self-care (01) | DRG 766 ==
LOC: OBT 10:11 → L-D 10:12 → OBT 12:15 → L-D 06-10 00:56 → PP1 06-10 04:31
PROVIDERS: ADMIT Obstetrics & Gynecology Gynecology; ATTEND Obstetrics & Gynecology Gynecology
PROC: 3E033VJ Introduction of Other Hormone into Peripheral Vein, Percutaneous Approach (ICD-10-PCS; 2017-06-10)
PROC: 10D00Z1 Extraction of Products of Conception, Low, Open Approach (ICD-10-PCS; principal; 2017-06-10 01:00)
DX: O48.0 Post-term pregnancy (principal); E66.01 Morbid (severe) obesity due to excess calories; Z3A.40 40 weeks gestation of pregnancy; O99.214 Obesity complicating childbirth; O32.4XX0 Maternal care for high head at term, not applicable or unspecified; O76 Abnormality in fetal heart rate and rhythm complicating labor and delivery; Z37.0 Single live birth
CPT/HCPCS: 76816; 76818; 80053; 85025; 85384; 85610; 85730; 86592; 86850; 86900; 86901; 94760; 99464; G0463; J0290; J0690; J1885; J2274; J2370; J2405; J2590; J7120